=== PATIENT | female | born 2000 | race Hispanic/Latino ===

== ENCOUNTER 2024-11-05 16:40 | Emergency (ER) | payer OTHER ==
[2024-11-05] MEDS ORDERED: IBUPROFEN 400 MG TAB ONE (17:02)
--- NOTE | 2024-11-05 17:49 | RAD REPORT ---
Exam:Shoulder Right 2+ Views History: Right shoulder pain Findings: No fracture or dislocation seen
--- NOTE | 2024-11-05 17:50 | RAD REPORT ---
Exam:Humerus Right CLINICAL HISTORY: Right arm pain FINDINGS: No fracture seen
--- NOTE | 2024-11-05 17:52 | EDPHYS ---
Physician Documentation [facility] Name: Rayna Rodriguez Age: 23 yrs Sex: Female : 2000 Arrival Date: 11/05/2024 Time: 16:40 Bed 12 Private MD: ED Physician Kolby Khalil HPI: 11/05 17:44 This 23 yrs old Female presents to ER via Ambulatory with complaints of Shoulder Injury.kb 17:44 Pt is a 23 year old female who presents for right shoulder pain. States she was at the [employer] gym yesterday, tripped over a dumbell and fell onto the right shoulder. Denies any other injury or pain. Historical: - Allergies: 17:05 No Known Allergies; nh2 - Home Meds: 17:05 None [Active]; nh2 - PMHx: 17:05 None; nh2 - PSHx: 17:05 Appendectomy; Cholecystectomy; nh2 - Immunization history:: Adult Immunizations up to date. - Infectious Disease History:: Denies. - Social history:: Smoking status: Patient denies any tobacco usage or history of. ROS: 17:45 Constitutional: As per HPI kb Exam: 17:45 Constitutional: This is a well developed, well nourished patient who is awake, alert, kb and in no acute distress. Head/Face: Normocephalic, atraumatic. ENT: Moist Mucous membranes Respiratory: Respirations even and unlabored. No increased work of breathing. Talking in full sentences Skin: Warm, dry with normal turgor. Normal color. Neuro: Awake and alert, GCS 15, oriented to person, place, time, and situation. 17:45 Musculoskeletal/extremity: Extremities: grossly normal except: noted in the right shoulder: decreased ROM, pain, tenderness, ROM: limited active range of motion due to pain, Circulation is intact in all extremities. Sensation intact. Vital Signs: 17:03 BP 117 / 79; Pulse 82; Resp 20; Temp 98.9(O); Pulse Ox 100% on R/A; Weight 121.56 kg; nh2 Height 5 ft. 5 in. ; Pain 9/10; 17:03 Body Mass Index 44.60 (121.56 kg, 165.1 cm) nh2 17:03 Pain Scale: Adult nh2 MDM: 16:51 Medical Screening Exam initiated kb 17:46 Differential diagnosis: dislocation, fracture, contusion. Data reviewed: vital signs, kb nurses notes. Independent interpretation of the following test(s) in the Emergency Department X-Ray: My interpretation is no fracture. 17:51 Counseling: I had a detailed discussion with the patient and/or guardian regarding the kb historical points, exam findings, and any diagnostic results supporting the discharge/admit diagnosis, radiology results, the need for outpatient follow up, a family practitioner, to return to the emergency department if symptoms worsen or persist or if there are any questions or concerns that arise at home. 11/05 17:00 Order name: Humerus Right XRAY; Complete Time: 17:51 kb 11/05 17:00 Order name: Shoulder Right (2 View) XRAY; Complete Time: 17:50 kb 11/05 17:51 Order name: Sling; Complete Time: 18:21 kb Administered Medications: 17:11 Drug: Ibuprofen PO 800 mg PO once Route: PO; nh2 17:50 Follow up: Response: No adverse reaction iw Disposition: 20:06 I was immediately available on-site in the Emergency Department for consultation in the ms3 care of the patient. Disposition Summary: 11/05/24 17:52 Discharge Ordered Notes: Location: Home kb Condition: Stable kb Diagnosis - Pain in right shoulder kb Followup: kb - With: Emergency Department - When: As needed - Reason: Worsening of condition Followup: kb - With: Private Physician - When: 2 - 3 days - Reason: Recheck today's complaints, Continuance of care, Re-evaluation by your physician Discharge Instructions: - Discharge Summary Sheet kb - Shoulder Pain, [id number] kb Forms: - Medication Reconciliation Form kb - Antibiotic Education kb - Prescription Opioid Use kb - Patient Portal Instructions kb - Leadership Thank You Letter kb Prescriptions: - Ibuprofen 800 mg Oral Tablet - take 1 tablet ORAL route every 8 hours As needed take with food; 30 tablet; kb Refills: 0, Product Selection Permitted - orphenadrine citrate 100 mg Oral Tablet Sustained Release - take 1 tablet ORAL route 2 times per day As needed; 20 tablet; Refills: 0, kb Product Selection Permitted Signatures: Dispatcher [employer] Domenica Mckinley FNP-C FNP-Ckb Sims, Marcus, DO DO ms3 Oumar Anna Jr, RN RN nh2 Neeru Villatoro RN iw
--- NOTE | 2024-11-05 17:52 | ER ---
Nurse's Notes [facility] Name: Rayna Rodriguez Age: 23 yrs Sex: Female : 2000 Arrival Date: 11/05/2024 Time: 16:40 Bed 12 Private MD: Diagnosis: Pain in right shoulder Presentation: 11/05 17:02 Chief complaint: Patient states: states that she was working out yesterday and tripped nh2 on dumbells and fell on R shoulder, c/o 9/10 pain and numbness in the R arm. 17:03 Coronavirus screen: At this time, the client does not indicate any symptoms associated nh2 with coronavirus-19. Ebola Screen: Patient denies travel to an Ebola-affected area in the 21 days before illness onset. No symptoms or risks identified at this time. Initial Sepsis Screen: Does the patient meet any 2 criteria? No. Patient's initial sepsis screen is negative. Does the patient have a suspected source of infection? No. Patient's initial sepsis screen is negative. Risk Assessment: Do you want to hurt yourself or someone else? Patient reports no desire to harm self or others. Onset of symptoms was November 04, 2024. 17:03 Method Of Arrival: Ambulatory nh2 17:03 Acuity: ANSHUL 4 nh2 Triage Assessment: 17:05 General: Appears uncomfortable, Behavior is cooperative, appropriate for age, crying, nh2 restless. Pain: Complains of pain in right arm Pain currently is 9 out of 10 on a pain scale. Quality of pain is described as aching, numb, Pain began 1 day ago. Is continuous. Neuro: Level of Consciousness is awake, alert, obeys commands, Oriented to person, place, time, situation, Appropriate for age. Cardiovascular: Patient's skin is warm and dry. Respiratory: Airway is patent Trachea midline Respiratory effort is even, unlabored, Respiratory pattern is regular, symmetrical. Derm: Reports tingling, since yesterday. Musculoskeletal: Range of motion: limited in right shoulder and right elbow. Injury Description: fell after tripping over dumbells while working out. Historical: - Allergies: 17:05 No Known Allergies; nh2 - Home Meds: 17:05 None [Active]; nh2 - PMHx: 17:05 None; nh2 - PSHx: 17:05 Appendectomy; Cholecystectomy; nh2 - Immunization history:: Adult Immunizations up to date. - Infectious Disease History:: Denies. - Social history:: Smoking status: Patient denies any tobacco usage or history of. Screenin:50 [facility] ED Fall Risk Assessment (Adult) History of falling in the last 3 months, iw including since admission No falls in past 3 months (0 pts) Confusion or Disorientation No (0 pts) Intoxicated or Sedated No (0 pts) Impaired Gait No (0 pts) Mobility Assist Device Used No (0 pt) Altered Elimination No (0 pt) Score/Fall Risk Level 0 - 2 = Low Risk Oriented to surroundings, Maintained a safe environment. Abuse screen: Denies threats or abuse. Denies injuries from another. Nutritional screening: No deficits noted. Tuberculosis screening: No symptoms or risk factors identified. Assessment: 17:50 General: Appears in no apparent distress. Behavior is calm, cooperative. Pain: iw Complains of pain in right elbow and right shoulder and right arm. Neuro: Level of Consciousness is awake, alert, obeys commands, Oriented to person, place, time, situation, Moves all extremities. Cardiovascular: Patient's skin is warm and dry. Respiratory: Respiratory effort is even, unlabored, Respiratory pattern is regular, symmetrical. Derm: Skin is intact, is healthy with good turgor. Musculoskeletal: Range of motion: limited in right shoulder and right arm. Vital Signs: 17:03 BP 117 / 79; Pulse 82; Resp 20; Temp 98.9(O); Pulse Ox 100% on R/A; Weight 121.56 kg; nh2 Height 5 ft. 5 in. ; Pain 9/10; 17:03 Body Mass Index 44.60 (121.56 kg, 165.1 cm) nh2 17:03 Pain Scale: Adult nh2 ED Course: 16:50 Patient arrived in ED. im 16:50 Domenica Velez FNP-C is [facility]. kb 16:50 Kolby Khalil DO is Attending Physician. kb 17:02 Arm band placed on. iw 17:05 Triage completed. nh2 17:32 Neeru Villatoro, RN is Primary Nurse. iw 17:32 Humerus Right XRAY In Process Unspecified. EDMS 17:32 Shoulder Right (2 View) XRAY In Process Unspecified. EDMS 17:50 Patient has correct armband on for positive identification. Provided Education on: . iw 18:20 No provider procedures requiring assistance completed. Patient did not have IV access iw during this emergency room visit. Administered Medications: 17:11 Drug: Ibuprofen PO 800 mg PO once Route: PO; nh2 17:50 Follow up: Response: No adverse reaction iw Medication: 18:20 VIS not applicable for this client. iw Outcome: 17:52 Discharge ordered by MD. thompson 18:20 Discharged to home ambulatory, with family, iw 18:20 Condition: good 18:20 Discharge instructions given to patient, Instructed on discharge instructions, follow up and referral plans. medication usage, Demonstrated understanding of instructions, follow-up care, medications, Prescriptions given X 2, 18:21 Patient left the ED. iw Signatures: Dispatcher [employer] EDDomenica Mendes, HOMICIDE INVESTIGATOR-C PHYLLIS-Neeru Pearson, RN RN iw Brandy Posadas Jr, Noel RN RN nh2
[2024-11-05 23:28] VITALS: BP 117/79; TEMP 98.9; O2SAT 100
== END 2024-11-05 18:21 | disposition home or self-care (01) ==
LOC: ER 16:40
DX: M25.511 Pain in right shoulder (principal)
CPT/HCPCS: 99283

== ENCOUNTER 2024-12-12 13:32 | Emergency (ER) | payer OTHER ==
[2024-12-12] MEDS ORDERED: NA CHLORIDE 0.9% 1,000 ML ONE (14:03)
[2024-12-12] MEDS ORDERED: ONDANSETRON 4 MG/2 ML VIAL ONE (14:03)
[2024-12-12 14:11] LABS: Absolute Lymphocytes (CBC) 1.9 K/uL (0.7-4.9); Hematocrit 33.4 % (36.0-45.0); Hemoglobin 10.8 g/dL (12.0-15.0); MCH 25.5 pg (27.0-35.0); MCHC 32.2 g/dL (32.0-36.0); MCV 79.1 fL (80-100); MPV 8.1 fL (7.6-11.3); Nucleated RBC Absolute Count 0.0 (0-0); Nucleated Red Blood Cells % 0.1 % (0-0); RBC Red Blood Cell Count 4.22 M/uL (3.86-4.86); White Blood Count 8.10 thou/uL (4.3-10.9)
[2024-12-12 14:26] LABS: ALT/SGPT 30 U/L (13-56); AST/SGOT 20 U/L (15-37); Albumin 3.4 g/dL (3.4-5.0); Albumin/Globulin Ratio 0.8 (1.1-1.8); Alkaline Phosphatase 77 U/L (45-117); Anion Gap 6.8 mEq/L (5.0-15.0); BUN Blood Urea Nitrogen 12 mg/dL (7-18); Globulin 4.1 g/dL (2.3-3.5); Glucose Level 94 mg/dL (74-106); Magnesium 2.0 mg/dL (1.6-2.4); Potassium 3.8 mEq/L (3.5-5.1)
[2024-12-12 14:27] LABS: Bilirubin Indirect, Calculated 0.3 mg/dL (0.2-0.8)
[2024-12-12 15:45] LABS: Sqamous Epithelial <5 /HPF (None Seen); Urine Crystals Unidentified Few /HPF (None Seen); Urine Culture Reflex Order NOT NEEDED; Urine Microscopic Reflex YN ORDER UMIC
--- NOTE | 2024-12-12 16:20 | EDPHYS ---
Physician Documentation [facility] Name: Rayna Pastor Age: 23 yrs Sex: Female : 2000 Arrival Date: 12/12/2024 Time: 13:32 Bed 12 Private MD: ED Physician Barry Angulo HPI: 12/12 13:48 This 23 yrs old Female presents to ER via Ambulatory with complaints of kb Dizziness, Vomiting. 13:48 Patient is a 23-year-old female who presents for dizziness that started yesterday with kb lower abdominal pain nausea and vomiting that started today. Denies diarrhea or fever. States she started her period yesterday as well. Patient states dizziness is worse when she goes from sitting to standing.. 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 - Infectious Disease History:: Denies. - Social history:: Smoking status: Patient denies any tobacco usage or history of. ROS: 13:49 Constitutional: As per HPI kb Exam: 13:49 Constitutional: This is a well developed, well nourished patient who is awake, alert, kb and in no acute distress. Head/Face: Normocephalic, atraumatic. ENT: Moist Mucous membranes Cardiovascular: Regular rate Respiratory: Respirations even and unlabored. No increased work of breathing. Talking in full sentences Skin: Warm, dry with normal turgor. Normal color. MS/ Extremity: Pulses equal, no cyanosis. Neurovascular intact. Full, normal range of motion. Neuro: Awake and alert, GCS 15, oriented to person, place, time, and situation. 13:49 Abdomen/GI: Inspection: abdomen appears normal, Bowel sounds: normal, Palpation: soft, in all quadrants, mild abdominal tenderness, in the suprapubic area, right lower quadrant and left lower quadrant, 14:25 ECG was reviewed by the Attending Physician. kb Vital Signs: 13:43 BP 132 / 69; Pulse 69; Resp 16; Temp 97.8; Pulse Ox 100% on R/A; Weight 119.75 kg; ll1 Height 5 ft. 5 in. ; Pain 5/10; 15:52 BP 136 / 78 Supine; Pulse 57; Resp 17; Pulse Ox 100% on R/A; bc6 15:53 BP 142 / 84 Sitting; Pulse 59; Resp 17; Pulse Ox 100% on R/A; bc6 15:53 BP 130 / 82 Standing; Pulse 65; Resp 18; Pulse Ox 100% on R/A; bc6 16:41 BP 117 / 69; Pulse 67; Resp 17; Pulse Ox 100% ; ss 13:43 Body Mass Index 43.93 (119.75 kg, 165.1 cm) ll1 13:43 Pain Scale: Adult ll1 MDM: 13:35 Medical Screening Exam initiated kb 16:18 Differential diagnosis: cardiac arrhythmia, generalized weakness, idiopathic dizziness, kb vertigo. Data reviewed: vital signs, nurses notes. Test considered but Not performed: CT: ct head considered but pt has no neuro deficits. Counseling: I had a detailed discussion with the patient and/or guardian regarding the historical points, exam findings, and any diagnostic results supporting the discharge/admit diagnosis, lab results, the need for outpatient follow up, a family practitioner, to return to the emergency department if symptoms worsen or persist or if there are any questions or concerns that arise at home. 12/12 13:47 Order name: Basic Metabolic Panel; Complete Time: 14:28 kb 12/12 13:47 Order name: CBC with Diff; Complete Time: 14:25 kb 12/12 13:47 Order name: Hepatic Function; Complete Time: 14:28 kb 12/12 13:47 Order name: Magnesium; Complete Time: 14:28 kb 12/12 13:47 Order name: Test, Urine; Complete Time: 15:58 kb 12/12 13:47 Order name: UA Rfx Mike Cult if indicated; Complete Time: 15:52 kb 12/12 13:47 Order name: EKG; Complete Time: 13:47 kb 12/12 13:47 Order name: Cardiac monitoring; Complete Time: 14:38 kb 12/12 13:47 Order name: EKG - Nurse/Tech; Complete Time: 14:02 kb 12/12 13:47 Order name: IV Saline Lock; Complete Time: 14:02 kb 12/12 13:47 Order name: Labs collected and sent; Complete Time: 14:03 kb 12/12 13:47 Order name: NPO; Complete Time: 14:03 kb 12/12 13:47 Order name: O2 Per Protocol; Complete Time: 14:38 kb 12/12 13:47 Order name: O2 Sat Monitoring; Complete Time: 14:38 kb 12/12 13:47 Order name: Orthostatics; Complete Time: 14:02 kb EC:25 Rate is 59 beats/min. Rhythm is regular. QRS [place] is Normal. MO interval is normal at kb 184 msec. QRS interval is normal at 84 msec. QT interval is normal at 409 msec. Administered Medications: 14:22 Drug: NS 0.9% IV 1000 ml IV at 1000 ml once; to be given as a bolus over 60 minutes ll1 Route: IV; Rate: 1000 ml; Site: right antecubital; 16:29 Follow up: Response: No adverse reaction; IV Status: Completed infusion; IV Intake: ll1 1000ml 14:22 Drug: Ondansetron IVP 4 mg IVP once; over 2 minutes Route: IVP; Site: right antecubital;ll1 16:29 Follow up: Response: No adverse reaction ll1 16:40 Drug: Meclizine PO 25 mg PO once Route: PO; ss 16:41 Follow up: Response: No adverse reaction ss Disposition Summary: 12/12/24 16:19 Discharge Ordered Notes: Location: Home kb Condition: Stable kb Diagnosis - Dizziness and giddiness kb - Nausea with vomiting, unspecified kb Followup: kb - With: Emergency Department - When: As needed - Reason: Worsening of condition Followup: kb - With: Private Physician - When: 2 - 3 days - Reason: Recheck today's complaints, Continuance of care, Re-evaluation by your physician Discharge Instructions: - Discharge Summary Sheet kb - Nausea and Vomiting, Adult, [id number] kb - Dizziness, [id number] kb Forms: - Medication Reconciliation Form kb - Antibiotic Education kb - Prescription Opioid Use kb - Patient Portal Instructions kb - Leadership Thank You Letter kb - Work release form ll1 Prescriptions: - Meclizine 25 mg Oral tablet - take 1 tablet ORAL route every 8 hours As needed; 21 tablet; Refills: 0, kb Product Selection Permitted - Zofran 4 mg Oral tablet - take 1 tablet ORAL route every 6 hours As needed; 12 tablet; Refills: 0, kb Product Selection Permitted Signatures: Dispatcher [employer] Domenica Mckinley, GUEST SERVICES DIRECTOR-C GUEST SERVICES DIRECTOR-Ckb Poornima Gomez, RN RN ss Bruce Douglas RN RN ll1
--- NOTE | 2024-12-12 16:20 | ER ---
Nurse's Notes [facility] Name: Rayna Pastor Age: 23 yrs Sex: Female : 2000 Arrival Date: 12/12/2024 Time: 13:32 Bed 12 Private MD: Diagnosis: Dizziness and giddiness;Nausea with vomiting, unspecified Presentation: 12/12 13:43 Chief complaint: Patient states: SHE WAS DIZZY YESTERDAY AND WOKE TODAY WITH LOWER ll1 STOMACH PAIN, N/V. PT DENIES DIARRHEA OR CONSTIPATION. Coronavirus screen: At this time, the client does not indicate any symptoms associated with coronavirus-19. Ebola Screen: No symptoms or risks identified at this time. Initial Sepsis Screen: Does the patient meet any 2 criteria? No. Patient's initial sepsis screen is negative. Does the patient have a suspected source of infection? No. Patient's initial sepsis screen is negative. Risk Assessment: Do you want to hurt yourself or someone else? Patient reports no desire to harm self or others. Onset of symptoms was December 11, 2024. 13:43 Method Of Arrival: Ambulatory ll1 13:43 Acuity: ANSHUL 3 ll1 Triage Assessment: 13:46 General: Appears in no apparent distress. uncomfortable, Behavior is calm, cooperative, ll1 appropriate for age. Pain: Complains of pain in right lower quadrant and left lower quadrant. Neuro: Reports dizziness. GI: Reports lower abdominal pain, nausea, vomiting. 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 - Infectious Disease History:: Denies. - Social history:: Smoking status: Patient denies any tobacco usage or history of. Screenin:23 [facility] ED Fall Risk Assessment (Adult) History of falling in the last 3 months, ll1 including since admission No falls in past 3 months (0 pts) Confusion or Disorientation No (0 pts) Intoxicated or Sedated No (0 pts) Impaired Gait No (0 pts) Mobility Assist Device Used No (0 pt) Altered Elimination No (0 pt) Score/Fall Risk Level 0 - 2 = Low Risk Maintained a safe environment, Hourly rounding (assess needs \T\ fall precautionary measures) done. Abuse screen: Denies threats or abuse. Nutritional screening: No deficits noted. Tuberculosis screening: No symptoms or risk factors identified. Assessment: 14:07 Reassessment: No changes from previously documented assessment. Patient and/or family ll1 updated on plan of care and expected duration. Pain level reassessed. 14:22 Reassessment: No changes from previously documented assessment. Patient and/or family ll1 updated on plan of care and expected duration. Pain level reassessed. Patient is alert, oriented x 3, equal unlabored respirations, skin warm/dry/pink. 15:24 Reassessment: Patient and/or family updated on plan of care and expected duration. Pain ll1 level reassessed. 16:42 GI: Abdomen is flat. ss 16:42 Reassessment: No changes from previously documented assessment. Patient and/or family ss updated on plan of care and expected duration. Pain level reassessed. Patient is alert, oriented x 3, equal unlabored respirations, skin warm/dry/pink. Vital Signs: 13:43 BP 132 / 69; Pulse 69; Resp 16; Temp 97.8; Pulse Ox 100% on R/A; Weight 119.75 kg; ll1 Height 5 ft. 5 in. ; Pain 5/10; 15:52 BP 136 / 78 Supine; Pulse 57; Resp 17; Pulse Ox 100% on R/A; bc6 15:53 BP 142 / 84 Sitting; Pulse 59; Resp 17; Pulse Ox 100% on R/A; bc6 15:53 BP 130 / 82 Standing; Pulse 65; Resp 18; Pulse Ox 100% on R/A; bc6 16:41 BP 117 / 69; Pulse 67; Resp 17; Pulse Ox 100% ; ss 13:43 Body Mass Index 43.93 (119.75 kg, 165.1 cm) ll1 13:43 Pain Scale: Adult ll1 ED Course: 13:34 Patient arrived in ED. mr 13:35 Domenica Velez [facility]NP-C [facility]. kb 13:35 Barry Angulo MD is Attending Physician. kb 13:46 Triage completed. ll1 13:46 Arm band placed on right wrist. ll1 14:03 Magnesium Sent. bc6 14:03 Basic Metabolic Panel Sent. bc6 14:03 CBC with Diff Sent. bc6 14:03 Hepatic Function Sent. 6 14:03 Test, Urine Sent. 6 14:03 Initial lab(s) drawn, by me, sent to lab. Inserted saline lock: 20 gauge in right bc6 antecubital area, using aseptic technique. Blood collected. Flushed with 10 mL NS. 14:07 Patient placed in an exam room, on a stretcher. ll1 14:23 Patient has correct armband on for positive identification. Provided Education on: ER ll1 procedures and process. 15:35 Urine collected: clean catch specimen, clear, sent to lab. ts3 16:41 No provider procedures requiring assistance completed. IV discontinued, intact, ss bleeding controlled, No redness/swelling at site. Pressure dressing applied. Administered Medications: 14:22 Drug: NS 0.9% IV 1000 ml IV at 1000 ml once; to be given as a bolus over 60 minutes ll1 Route: IV; Rate: 1000 ml; Site: right antecubital; 16:29 Follow up: Response: No adverse reaction; IV Status: Completed infusion; IV Intake: ll1 1000ml 14:22 Drug: Ondansetron IVP 4 mg IVP once; over 2 minutes Route: IVP; Site: right antecubital;ll1 16:29 Follow up: Response: No adverse reaction ll1 16:40 Drug: Meclizine PO 25 mg PO once Route: PO; ss 16:41 Follow up: Response: No adverse reaction ss Medication: 14:24 VIS not applicable for this client. ll1 Intake: 16:29 IV: 1000ml; Total: 1000ml. ll1 Outcome: 16:19 Discharge ordered by . kb 16:42 Discharged to home ambulatory, 16:42 Condition: stable 16:42 Discharge instructions given to patient, family, Instructed on discharge instructions, follow up and referral plans. medication usage, Demonstrated understanding of instructions, follow-up care, medications, Prescriptions given X 2, 16:42 Patient left the ED. Signatures: Domenica Velez, INDUSTRIAL RELATIONS MANAGER-C INDUSTRIAL RELATIONS MANAGER-Ckb Joanne Marcus, Reg Reg mr Poornima Gomez, RN RN ss Bruce Douglas RN RN ll1 Gabriella Hidalgo [facility] Diana Zuluaga ts3
[2024-12-12] MEDS ORDERED: MECLIZINE HCL 12.5 MG TAB ONE (16:33)
[2024-12-12 17:04] VITALS: TEMP 97.8; O2SAT 100
[2024-12-12 17:11] VITALS: BP 117/69
== END 2024-12-12 16:42 | disposition home or self-care (01) ==
LOC: ER 13:32
DX: R42 Dizziness and giddiness (principal); R11.2 Nausea with vomiting, unspecified
CPT/HCPCS: 96361; 93005; 85025; 81001; 80048; 36415; 83735; 81025; 80076; 96374; 99284; J8597; J2405; J7030

== ENCOUNTER 2024-12-26 15:27 | Emergency (ER) | payer OTHER ==
[2024-12-26] MEDS ORDERED: KETOROLAC 30 MG/ML INJ ONE (16:21)
[2024-12-26] MEDS ORDERED: ONDANSETRON 4 MG/2 ML VIAL ONE (16:21)
[2024-12-26] MEDS ORDERED: NA CHLORIDE 0.9% 1,000 ML ONE (16:21)
[2024-12-26 16:23] LABS: Absolute Lymphocytes (CBC) 1.8 K/uL (0.7-4.9); Hematocrit 31.5 % (36.0-45.0); Hemoglobin 10.4 g/dL (12.0-15.0); MCH 26.1 pg (27.0-35.0); MCHC 32.9 g/dL (32.0-36.0); MCV 79.2 fL (80-100); MPV 8.3 fL (7.6-11.3); Nucleated RBC Absolute Count 0.0 (0-0); Nucleated Red Blood Cells % 0.1 % (0-0); RBC Red Blood Cell Count 3.98 M/uL (3.86-4.86); White Blood Count 7.20 thou/uL (4.3-10.9)
[2024-12-26 16:39] LABS: Influenza A Ag Negative; Influenza B Ag Negative; SARS-CoV-2 Antigen Rapid Res Negative (Negative)
[2024-12-26 16:46] LABS: ALT/SGPT 23.0 U/L (13-56); AST/SGOT 16.0 U/L (15-37); Albumin 3.3 g/dL (3.4-5.0); Albumin/Globulin Ratio 0.9 (1.1-1.8); Alkaline Phosphatase 76.0 U/L (45-117); Anion Gap 7.2 mEq/L (5.0-15.0); BUN Blood Urea Nitrogen 15.0 mg/dL (7-18); Globulin 3.8 g/dL (2.3-3.5); Glucose Level 123.0 mg/dL (74-106); Lipase 43.0 U/L (13-75); Potassium 3.2 mEq/L (3.5-5.1)
--- NOTE | 2024-12-26 17:23 | EDPHYS ---
Physician Documentation [facility] Name: Rayna Pastor Age: 24 yrs Sex: Female : 2000 Arrival Date: 12/26/2024 Time: 15:27 Bed 18 Private MD: ED Physician Kolby Khalil HPI: 12/26 17:17 This 24 yrs old Female presents to ER via Ambulatory with complaints of kb Nausea/Vomiting, Dizziness, Cough, Sore Throat. 17:17 Patient is a 24-year-old female who presents for nausea, vomiting and dizziness that kb started on 12 December and has since developed congestion, sore throat and shortness of breath 3 days ago. Denies fever, chills. Reports body aches. Denies abdominal pain. Historical: - Allergies: 15:35 No Known Allergies; dd2 - PMHx: 15:35 None; dd2 - PSHx: 15:35 Appendectomy; Cholecystectomy; dd2 - Immunization history:: Adult Immunizations up to date. - Infectious Disease History:: Denies. - Social history:: Smoking status: Patient denies any tobacco usage or history of. ROS: 17:16 Constitutional: As per HPI kb Exam: 17:16 Constitutional: This is a well developed, well nourished patient who is awake, alert, kb and in no acute distress. Head/Face: Normocephalic, atraumatic. ENT: Moist Mucous membranes Cardiovascular: Regular rate Respiratory: Respirations even and unlabored. No increased work of breathing. Talking in full sentences Abdomen/GI: Soft, non-tender. No distention Skin: Warm, dry with normal turgor. Normal color. MS/ Extremity: Pulses equal, no cyanosis. Neurovascular intact. Full, normal range of motion. Neuro: Awake and alert, GCS 15, oriented to person, place, time, and situation. Vital Signs: 15:31 BP 124 / 70; Pulse 81; Resp 16; Temp 98.9(O); Pulse Ox 100% on R/A; Weight 117.93 kg; dd2 Height 5 ft. 6 in. ; Pain 8/10; 16:30 BP 116 / 57; Pulse 67; Resp 18; Pulse Ox 100% on R/A; jp5 17:32 BP 99 / 51; Pulse 65; Resp 18; Temp 97.8(O); Pulse Ox 100% on R/A; Pain 3/10; jp5 15:31 Body Mass Index 41.96 (117.93 kg, 167.64 cm) dd2 15:31 Pain Scale: Adult dd2 17:32 Pain Scale: Adult jp5 MDM: 15:30 Medical Screening Exam initiated kb 17:17 Data reviewed: vital signs, nurses notes. kb 17:22 Differential diagnosis: viral gastroenteritis, Abnormal electrolytes, dehydration, flu, kb COVID, strep, mono, viral syndrome. I considered the following discharge prescriptions or medication management in the emergency department I discussed and recommended Over The Counter medications, Antibiotics: At this time antibiotics are not recommended. Test considered but Not performed: X-ray: Chest x-ray considered but lungs clear bilaterally, respirations even and unlabored, oxygen 100% on room air. CT: CT abdomen pelvis considered but patient has no abdominal pain or tenderness. Counseling: I had a detailed discussion with the patient and/or guardian regarding the historical points, exam findings, and any diagnostic results supporting the discharge/admit diagnosis, lab results, the need for outpatient follow up, a family practitioner, to return to the emergency department if symptoms worsen or persist or if there are any questions or concerns that arise at home. 12/26 15:38 Order name: CBC with Diff; Complete Time: 16:35 kb 12/26 15:38 Order name: CMP; Complete Time: 16:48 kb 12/26 15:38 Order name: Lipase; Complete Time: 16:48 kb 12/26 15:38 Order name: Group A Streptococcus Rapid; Complete Time: 16:33 kb 12/26 15:38 Order name: COVID-19 Ag + Flu A+B Ag; Complete Time: 16:40 kb 12/26 15:38 Order name: [place] Screen Profile; Complete Time: 16:59 kb 12/26 16:34 Order name: Throat Culture EDMS 12/26 15:38 Order name: IV Saline Lock; Complete Time: 16:05 kb 12/26 15:38 Order name: Labs collected and sent; Complete Time: 16:05 kb 12/26 16:59 Order name: PO challenge; Complete Time: 17:24 kb Administered Medications: 16:26 Drug: NS 0.9% IV 1000 ml IV at 1 bolus Per protocol; to be given as a bolus over 60 jp5 minutes Route: IV; Rate: 1 bolus; Site: right forearm; 17:26 Follow up: IV Status: Completed infusion; IV Intake: 1000ml jp5 16:27 Drug: TORadol - Ketorolac IVP 15 mg IVP once Route: IVP; Site: right forearm; jp5 16:57 Follow up: Response: No adverse reaction jp5 16:27 Drug: Ondansetron IVP 4 mg IVP once; over 2 minutes Route: IVP; Site: right forearm; jp5 16:57 Follow up: Response: No adverse reaction jp5 17:42 Drug: Potassium Chloride PO 40 mEq PO once Route: PO; jp5 17:43 Drug: Decadron - Dexamethasone IVP 10 mg IVP once Route: IVP; Site: right forearm; jp5 Disposition: 19:47 I was immediately available on-site in the Emergency Department for consultation in the ms3 care of the patient. Disposition Summary: 12/26/24 17:23 Discharge Ordered Notes: Location: Home kb Condition: Stable kb Diagnosis - Viral infection, unspecified kb Followup: kb - With: Emergency Department - When: As needed - Reason: Worsening of condition Followup: kb - With: Private Physician - When: 2 - 3 days - Reason: Recheck today's complaints, Continuance of care, Re-evaluation by your physician Discharge Instructions: - Discharge Summary Sheet kb - Viral Gastroenteritis, Adult, [id number] kb - Viral Illness, Adult kb Forms: - Medication Reconciliation Form kb - Antibiotic Education kb - Prescription Opioid Use kb - Patient Portal Instructions kb - Leadership Thank You Letter kb - Work release form jp5 Prescriptions: - ondansetron 4 mg Oral Tablet,disintegrating - take 1 tablet ORAL route every 6 hours as needed for nausea and vomiting; 12 kb tablet; Refills: 0, Product Selection Permitted Signatures: Dispatcher [employer] EDMS Domenica Velez, PHYLLIS-C PHYLLIS-Kolby Zaman DO DO ms3 Georgie Boykin RN RN jp5 MARK ROY RN RN dd2 Corrections: (The following items were deleted from the chart) 15:38 15:38 CBC+H.LAB.BRZ ordered. EDMS EDMS 15:38 15:38 COMPREHENSIVE METABOLIC PANEL+C.LAB.BRZ ordered. EDMS EDMS 15:38 15:38 LIPASE+C.LAB.BRZ ordered. EDMS EDMS 15:38 15:38 Group A Streptococcus Rapid Sc+I.LAB.BRZ ordered. EDMS EDMS 15:38 15:38 COVID-19 Ag + Flu A+B Ag+I.LAB.BRZ ordered. EDMS EDMS 15:38 15:38 MONO SCREEN PROFILE+I.LAB.BRZ ordered. EDMS EDMS 15:38 15:38 Test, Urine+UC.LAB.BRZ ordered. EDMS EDMS
--- NOTE | 2024-12-26 17:23 | ER ---
Nurse's Notes [facility] Name: Rayna Pastor Age: 24 yrs Sex: Female : 2000 Arrival Date: 12/26/2024 Time: 15:27 Bed 18 Private MD: Diagnosis: Viral infection, unspecified Presentation: 12/26 15:31 Chief complaint: Patient states: WAS HERE ON 12/12/2024 FOR N/V AND DIZZINESS AND HAS dd2 CONTINUED TO HAVE THE SAME SYMPTOMS WITH CONGESTION, SORE THROAT, SHORTNESS OF BREATH STARTING ON THE . Coronavirus screen: congestion, cough unrelated to allergies, fever, nausea, runny nose, sore throat, vomiting. Ebola Screen: No symptoms or risks identified at this time. Initial Sepsis Screen: Does the patient meet any 2 criteria? No. Patient's initial sepsis screen is negative. Does the patient have a suspected source of infection? No. Patient's initial sepsis screen is negative. Risk Assessment: Do you want to hurt yourself or someone else? Patient reports no desire to harm self or others. Onset of symptoms was December 12, 2024. 15:31 Method Of Arrival: Ambulatory dd2 15:31 Acuity: ANSHUL 3 dd2 Triage Assessment: 15:35 General: Appears in no apparent distress. uncomfortable, well nourished, Behavior is dd2 calm, cooperative, appropriate for age. Pain: Complains of pain in GENERALIZED. EENT: Reports difficulty swallowing nasal congestion nasal discharge pain when swallowing. Respiratory: Reports cough that is. GI: Reports nausea, vomiting. Historical: - Allergies: 15:35 No Known Allergies; dd2 - PMHx: 15:35 None; dd2 - PSHx: 15:35 Appendectomy; Cholecystectomy; dd2 - Immunization history:: Adult Immunizations up to date. - Infectious Disease History:: Denies. - Social history:: Smoking status: Patient denies any tobacco usage or history of. Screenin:05 [facility] ED Fall Risk Assessment (Adult) History of falling in the last 3 months, jp5 including since admission No falls in past 3 months (0 pts) Confusion or Disorientation No (0 pts) Intoxicated or Sedated No (0 pts) Impaired Gait No (0 pts) Mobility Assist Device Used No (0 pt) Altered Elimination No (0 pt) Score/Fall Risk Level 0 - 2 = Low Risk. [facility] ED Fall Risk Assessment (Adult) Score/Fall Risk Level 0 - 2 = Low Risk Oriented to surroundings, Maintained a safe environment, Educated pt \T\ family on fall prevention, incl call for assistance when getting out of bed, Assessed \T\ reinforced patient's understanding of fall precautions, Provided non-skid footwear, Hourly rounding (assess needs \T\ fall precautionary measures) done, Used ambulatory aids as needed (educated on \T\ assisted with), Used gait belt as appropriate. Abuse screen: Denies threats or abuse. Denies injuries from another. Nutritional screening: Has had N/V for 3 or more days. Tuberculosis screening: No symptoms or risk factors identified. Assessment: 16:05 GI: Abdomen is round non-distended, Reports intolerance of fluids, intolerance of food, jp5 nausea, vomiting. 17:05 Reassessment: Patient appears in no apparent distress at this time. Patient and/or jp5 family updated on plan of care and expected duration. Pain level reassessed. Patient is alert, oriented x 3, equal unlabored respirations, skin warm/dry/pink. Patient states feeling better. Vital Signs: 15:31 BP 124 / 70; Pulse 81; Resp 16; Temp 98.9(O); Pulse Ox 100% on R/A; Weight 117.93 kg; dd2 Height 5 ft. 6 in. ; Pain 8/10; 16:30 BP 116 / 57; Pulse 67; Resp 18; Pulse Ox 100% on R/A; jp5 17:32 BP 99 / 51; Pulse 65; Resp 18; Temp 97.8(O); Pulse Ox 100% on R/A; Pain 3/10; jp5 15:31 Body Mass Index 41.96 (117.93 kg, 167.64 cm) dd2 15:31 Pain Scale: Adult dd2 17:32 Pain Scale: Adult jp5 ED Course: 15:29 Patient arrived in ED. al6 15:30 Domenica Velez FNP-C is PHCP. kb 15:30 Kolby Khalil DO is Attending Physician. kb 15:35 Triage completed. dd2 15:35 Arm band placed on right wrist. dd2 16:05 Patient has correct armband on for positive identification. Bed in low position. Call jp5 light in reach. Side rails up X 1. Provided Education on: call light use. Pulse ox on. NIBP on. 16:05 CBC with Diff Sent. jp5 16:05 CMP Sent. jp5 16:05 Lipase Sent. jp5 16:05 Group A Streptococcus Rapid Sent. jp5 16:05 COVID-19 Ag + Flu A+B Ag Sent. jp5 16:05 [place] Screen Profile Sent. jp5 16:05 Inserted saline lock: 20 gauge in right forearm, using aseptic technique. Blood jp5 collected. Flushed with 10 mL NS. 16:05 No provider procedures requiring assistance completed. jp5 17:44 IV discontinued, intact, bleeding controlled, No redness/swelling at site. Pressure jp5 dressing applied. Administered Medications: 16:26 Drug: NS 0.9% IV 1000 ml IV at 1 bolus Per protocol; to be given as a bolus over 60 jp5 minutes Route: IV; Rate: 1 bolus; Site: right forearm; 17:26 Follow up: IV Status: Completed infusion; IV Intake: 1000ml jp5 16:27 Drug: TORadol - Ketorolac IVP 15 mg IVP once Route: IVP; Site: right forearm; jp5 16:57 Follow up: Response: No adverse reaction jp5 16:27 Drug: Ondansetron IVP 4 mg IVP once; over 2 minutes Route: IVP; Site: right forearm; jp5 16:57 Follow up: Response: No adverse reaction jp5 17:42 Drug: Potassium Chloride PO 40 mEq PO once Route: PO; jp5 17:43 Drug: Decadron - Dexamethasone IVP 10 mg IVP once Route: IVP; Site: right forearm; jp5 Medication: 16:05 VIS not applicable for this client. jp5 Intake: 17:26 IV: 1000ml; Total: 1000ml. jp5 Outcome: 17:23 Discharge ordered by MD. thompson 17:44 Discharged to home ambulatory, jp5 17:44 Condition: stable 17:44 Discharge instructions given to patient, Instructed on discharge instructions, follow up and referral plans. medication usage, Demonstrated understanding of instructions, follow-up care, medications, Prescriptions given X 1, 17:52 Patient left the ED. jp5 Signatures: Domenica Velez, IDALIA FERGUSON-Georgie Loera RN RN jp5 MARK ROY RN RN dd2 Mone Bowman Corrections: (The following items were deleted from the chart) 15:36 15:31 Acuity: ANSHUL 4 dd2 dd2
[2024-12-26] MEDS ORDERED: POTASSIUM CL SA 10 MEQ TAB PO ONE (17:37)
[2024-12-26 18:08] VITALS: O2SAT 100
[2024-12-26 18:15] VITALS: BP 99/51; TEMP 97.8
== END 2024-12-26 17:52 | disposition home or self-care (01) ==
LOC: ER 15:27
DX: B34.9 Viral infection, unspecified (principal); Z11.52 Encounter for screening for COVID-19
CPT/HCPCS: 96361; 87070; 85025; 36415; 86308; 83690; 80053; 96375; 96374; 99284; 87428; J1885; J1100; J2405; J7030